=== PATIENT | male | born 1950 | race African-American/Black ===

== ENCOUNTER 2021-02-07 08:07 | Emergency (ER) | payer MEDICAID ==
[~2021-02-07] VITALS: Ht 185.4 cm; Wt 100.0 kg
[2021-02-07] MEDS ORDERED: INSU100V3 SUBCUT (08:15)
[2021-02-07] MEDS ORDERED: ONDANSETRON 4MG ODT PO STA (08:55)
[2021-02-07 09:28] LABS: EOSINOPHILS % 1.5 % (0.0-5.0); HEMATOCRIT. 41.2 % (42.0-52.0); LYMPHOCYTES % 11.8 % (20.0-50.0); MEAN CORPUSCULAR HEMOGLOBIN 31.1 pg (28.0-32.0); MEAN CORPUSCULAR VOLUME 91.6 fL (80.0-94.0); MEAN PLATELET VOLUME 7.3 fl (7.4-10.4); MONOCYTES % 4.1 % (2.0-8.0); NEUTROPHILS % 81.6 % (40.0-76.0); PLATELET 272 x1000/uL (130-400); RED BLOOD CELL COUNT 4.49 mill/uL (4.7-6.1); RED CELL DISTRIBUTION WIDTH 13.7 % (11.6-14.6)
[2021-02-07 09:30] LABS: CHLORIDE 101 mEq/L (98-107)
[2021-02-07 09:34] LABS: ETHANOL BLOOD < 10 mg/dL
[2021-02-07] MEDS ORDERED: ONDA4TAB5 MT (11:04)
[2021-02-07 11:05] VITALS: BP 171/89
[2021-02-07 11:17] LABS: *COCAINE SCREEN URINE NEGATIVE (NEGATIVE); METHADONE URINE SCREEN NEGATIVE (NEGATIVE); OPIATES URINE SCREEN NEGATIVE (NEGATIVE); PHENCYCLIDINE URINE SCREEN NEGATIVE (NEGATIVE)
[2021-02-07 11:18] LABS: *AMPHETAMINES SCREEN URINE NEGATIVE (NEGATIVE); *BENZODIAZEPINES SCREEN URINE NEGATIVE (NEGATIVE); CANNABINOID URINE SCREEN PRESUMTIVE POSITIVE (NEGATIVE)
[2021-02-07 11:25] LABS: *BARBITURATES SCREEN URINE NEGATIVE (NEGATIVE)
== END 2021-02-07 11:19 | disposition home or self-care (01) ==
LOC: ER 08:07
DX: R07.89 Other chest pain (principal); I20.0 Unstable angina; E11.9 Type 2 diabetes mellitus without complications; Z79.4 Long term (current) use of insulin
CPT/HCPCS: 36415; 71045; 80053; 80305; 80320; 83690; 83880; 84484; 85025; 93005; 99285; Q0162; G0480